=== PATIENT | female | born 1945 | race Caucasian/White ===

== ENCOUNTER 2018-08-31 10:23 | Emergency (ER) | payer MEDICARE ==
--- OUTSIDE RECORDS SUMMARY | 2018-08-31 10:29 | XMS REPORT ---
:1945 External Reference #:[id number] Author Organization [facility] Address [address] [place] [address] [place] [address] Phone [phone] Care Team Providers Name Role Phone Bernadette Velasquez MD Primary Care Physician Unavailable Payers Type Date Identification Numbers Payment Provider Subscriber Commercial Effective: Policy Number: [id number] [employer] Deven Figueroa 2016 PayID: [id number] [address] [place] [address] Medigap Part B Effective: 2009 Policy Number: Medicare Deven Figueroa [id number] Expires: 2016 PayID: [id number] [address] [place] [address] Medigap Part B Expires: 2016 Policy Number: [employer] Deven Figueroa [id number] Group Number: [id number] [address] PayID: [id number] [place] [address] Problems Date Description Provider Status Onset: 07/04/2011 Benign essential hypertension Regla Sanchez M.D. Onset: 07/04/2011 Pure hypercholesterolemia Regla Sanchez M.D. Onset: 02/12/2012 Electrocardiogram abnormal Regla Sanchez M.D. Onset: 02/12/2012 Primary cardiomyopathy Regla Sanchez M.D. Onset: 02/12/2012 Mitral valve disorder Regla Sanchez M.D. Onset: 05/26/2013 Tricuspid valve disorder, Regla Sanchez non-rheumatic Bobby Onset: 04/13/2014 Rheumatic disease of tricuspid valve Regla Sanchez M.D. Onset: 10/14/2015 Essential hypertension Regla Sanchez M.D. Onset: 10/14/2015 Cardiomyopathy, unspecified Regla Sanchez M.D. Family History Date Family Member(s) Problem(s) Comments : (age 52 Father due to Cancer nasal Years) : (age 85 Mother due to Kidney polymyalgia, high doses of Years) Failure steroids type 2 DM : (age 65 First Brother due to Cancer esophogeal hx viral Years) cardiomyopthy Social History Type Date Description Comments Marital Status Lives With Occupation Retired ETOH Use Never used alcohol Smoking Patient has never smoked Document: 07/04/11 - .Progress Note F/Up Cardio Recreational Drug Use Never Used Drugs Daily Caffeine Does Not Consume Caffeine Exercise Type/Frequency Exercises regularly walks 4.0mi/day General Hx Text Allergies, Adverse Reactions, Alerts Date Description Reaction Status Severity Comments 12/18/2006 Sulfa active hives Medications Medication Date Status Form Strength Qnty SIG Indications Ordering Provider Fish Oil 02/11/ Active Capsules 1000mg 1 po qd Woody 2011 Flynn Hannah M.D. Metoprolol 03/14/ Active Tablets ER 50mg 90tabs 1 by Woody Succinate ER 2010 24HR mouth S. every day Bobby Hannah Lisinopril 12/31/ Active Tablets 20mg 90tabs 1 by Woody 2006 mouth S. every haydah, Bobby Simvastatin / Active Tablets 10mg 90tabs 1 po qhs Unknown 0000 Aspirin Ec / Active Tablets DR 81mg 90tabs 1 tablet Unknown Lo-Dose 0000 daily. Metformin HCL / Active Tablets ER 500mg 1 by Unknown ER 0000 24HR mouth every day Areds 00/ Active Capsules 1 by Unknown 0000 mouth bid Vitamin B12 12/02/ Hx Tablets ER 1000mcg 1 po qd Woody 2010 - SDanette 05/26/ Suyapa Hannah M.D. B12 06/25/ Hx one po qd Qutaybeh 2008 - S. 12/02/ [facility], 2010 M.D. Iron 25/ Hx Tablets 65mg one po qd Unknown 2008 - 2012 Vit D 04/22/ Hx 1000Iu one qd Qutaybeh 2008 - S. 02/11/ [facility] Fish Oil 04/22/ Hx Capsules 1000mg 1 po qd Qutaybeh 2008 - S. [facility] 2011 M.[facility]. Vitamin 25/ Hx one po qd Qutaybeh 2008 - S. [facility], 2013 M.D. Simvastatin 04/22/ Hx Tablets 20mg 30tabs 1 po qd Qutaybeh 2008 - S. [facility], 2011 M.D. Lipitor 04/18/ Hx Tablets 10mg 1 PO QHS Qutaybeh 2006 - S. [facility], 2008 M.D. Metoprolol 03/12/ Hx Tablets Qutaybeh Tartrate 2006 - S. 03/12/ [facility], 2006 M.D. Metoprolol 15/ Hx Tablets ER 25mg 180tab 2 tablets Qutaybeh Succinate ER 2006 - 24HR s po qd S. [facility], 2010 M.D. Lipitor 05/ Hx Tablets 20mg 30tabs 1 PO qd Qutaybeh 2006 - [facility]. Lipitor 05/ Hx Tablets 10mg 1 PO qd Qutaybeh 2006 - S. 04/18/ [facility], [facility] M.D. Toprol XL 05/ Hx Tablets ER 50mg 90tabs 1 po qd Qutaybeh 2006 - 24HR S. 03/12/ [facility] M.[facility]. Digoxin 12/31/ Hx Tablets 0.25mg 30tabs 1 po qd Qutaybeh 2006 - S. 10/21/ [facility], 2007 M.D. Lipitor 20/ Hx Tablets 10mg 30tabs 1 PO qd Qutaybeh 2006 - [facility]. 12/[facility]. Toprol XL 02/20/ Hx Tablets 25mg 30tabs 1 PO qd Qutaybeh 2006 - S. 12/31/ [facility], 2006 M.DDanette Lisinopril 12/18/ Hx Tablets 10mg 30tabs 1 PO qd Qutaybeh 2006 - S. 12/31/ [facility], 2006 M.DDanette Digoxin 12/18/ Hx Tablets 250McG 30tabs 1 po qd Qutaybhoma 2006 - . 12/31/ [facility], 2006 M.DDanette Glucophage / Hx Tablets 500XR 360tab 1 PO bid Unknown 0000 - s 2008 Iron 00/ Hx Tablets 25mg Twice A Unknown 0000 - Day 2008 B12 / Hx Injections weekly Unknown 0000 - 2008 Metformin HCL / Hx Tablets ER 500mg 30tabs 1 po qd Unknown ER 0000 - 24HR 2012 Enablex 00/ Hx Tablets ER 15mg qd Unknown 0000 - 24HR 2011 Vagifem / Hx Tablets 10mcg 24tabs pv twice Unknown 0000 - a week (with 2015 applicato r) Cinnamon / Hx Tablets 500mg 2 tabs Unknown 0000 - daily 2014 Preservision / Hx Capsules Areds 2 60caps take one Unknown Areds 2 0000 - cap in the 2015 moring and one cap in the evening Vital Signs Date Vital Result Comment 08/07/2018 Height 68.5 inches 5'8.50" Weight 209.00 lb with shoes Heart Rate 78 /min BP Systolic 134 mmHg BP Diastolic 70 mmHg BMI (Body Mass Index) 31.3 kg/m2 Ejection Fraction 50-55% echo. 07/06/2016 10/15/2017 Height 68.5 inches 5'8.50" Weight 211.00 lb Heart Rate 68 /min BP Systolic Sitting 150 mmHg LA, reg cuff BP Diastolic Sitting 78 mmHg LA, reg cuff BMI (Body Mass Index) 31.6 kg/m2 Ejection Fraction 50%-55% echo 07/06/16 01/29/2017 Height 68.5 inches 5'8.50" Weight 208.75 lb w/o shoes Heart Rate 70 /min BP Systolic Sitting 140 mmHg LA reg cuff BP Diastolic Sitting 68 mmHg LA reg cuff BMI (Body Mass Index) 31.3 kg/m2 Ejection Fraction 50% - 55% echo 07/06/16 06/26/2016 Height 68.5 inches 5'8.50" Weight 207.00 lb w/o shoes Heart Rate 70 /min BP Systolic Sitting 152 mmHg LA reg cuff BP Diastolic Sitting 82 mmHg LA reg cuff BMI (Body Mass Index) 31.0 kg/m2 Ejection Fraction 50-55% Echo 03/03/15 04/04/2016 Height 68.5 inches 5'8.50" Weight 200.00 lb Pain Level 0 BMI (Body Mass Index) 30.0 kg/m2 03/01/2016 Height 68.5 inches 5'8.50" Weight 200.00 lb Pain Level 1 BMI (Body Mass Index) 30.0 kg/m2 02/08/2016 Height 68.5 inches 5'8.50" Weight 200.00 lb Pain Level 0 BMI (Body Mass Index) 30.0 kg/m2 01/28/2016 Height 68.5 inches 5'8.50" Weight 200.00 lb Heart Rate 72 /min BP Systolic 169 mmHg BP Diastolic 81 mmHg BMI (Body Mass Index) 30.0 kg/m2 10/14/2015 Height 64 inches 5'4" Weight 208.00 lb Heart Rate 64 /min BP Systolic 148 mmHg LA, reg50 BP Diastolic 80 mmHg LA, reg50 BMI (Body Mass Index) 35.7 kg/m2 Ejection Fraction 50%-55% 03/03/15 03/01/2015 Height 64 inches 5'4" Weight 210.00 lb w/shoes Heart Rate 74 /min BP Systolic Sitting 130 mmHg LA reg cuff BP Diastolic Sitting 88 mmHg LA reg cuff Respiratory Rate 12 /min BMI (Body Mass Index) 36.0 kg/m2 Ejection Fraction 45-50 echo 08/19/14 08/28/2014 Height 64 inches 5'4" Weight 207.25 lb Heart Rate 74 /min BP Systolic Sitting 136 mmHg LA reg cuff BP Diastolic Sitting 70 mmHg LA reg cuff Respiratory Rate 22 /min BMI (Body Mass Index) 35.6 kg/m2 04/13/2014 Height 64 inches 5'4" Weight 207.00 lb Heart Rate 72 /min BP Systolic Sitting 148 mmHg BP Diastolic Sitting 76 mmHg Respiratory Rate 14 /min BMI (Body Mass Index) 35.5 kg/m2 02/10/2014 Height 64 inches 5'4" Weight 207.50 lb Heart Rate 76 /min BP Systolic Sitting 138 mmHg BP Diastolic Sitting 74 mmHg BP Systolic Recheck 141 mmHg patient cuff BP Diastolic Recheck 84 mmHg patient cuff Respiratory Rate 16 /min BMI (Body Mass Index) 35.6 kg/m2 01/26/2014 Height 64 inches 5'4" Weight 199.00 lb Heart Rate 70 /min BP Systolic Sitting 142 mmHg left arm, reg cuff BP Diastolic Sitting 78 mmHg left arm, reg cuff BP Systolic Standing 138 mmHg left arm, reg cuff BP Diastolic Standing 78 mmHg left arm, reg cuff Respiratory Rate 20 /min BMI (Body Mass Index) 34.2 kg/m2 05/26/2013 Height 64 inches 5'4" Weight 206.00 lb Heart Rate 77 /min BP Systolic Sitting 112 mmHg BP Diastolic Sitting 62 mmHg Respiratory Rate 16 /min BMI (Body Mass Index) 35.4 kg/m2 09/24/2012 Height 64 inches 5'4" Weight 204.00 lb Heart Rate 88 /min BP Systolic Sitting 132 mmHg BP Diastolic Sitting 80 mmHg Respiratory Rate 16 /min BMI (Body Mass Index) 35.0 kg/m2 02/12/2012 Height 64 inches 5'4" Weight 204.00 lb Heart Rate 73 /min BP Systolic 110 mmHg BP Diastolic 64 mmHg Respiratory Rate 16 /min BMI (Body Mass Index) 35.0 kg/m2 07/04/2011 Height 64 inches 5'4" Weight 204.00 lb Heart Rate 74 /min BP Systolic Sitting 128 mmHg BP Diastolic Sitting 82 mmHg BMI (Body Mass Index) 35.0 kg/m2 12/02/2010 Weight 203.00 lb Heart Rate 68 /min BP Systolic Sitting 130 mmHg BP Diastolic Sitting 70 mmHg 02/15/2010 Height 68.5 inches 5'8.50" Weight 199.00 lb Heart Rate 73 /min BP Systolic Sitting 120 mmHg BP Diastolic Sitting 58 mmHg BMI (Body Mass Index) 29.8 kg/m2 11/23/2009 Height 68.5 inches 5'8.50" Weight 197.00 lb Heart Rate 82 /min BP Systolic Sitting 120 mmHg BP Diastolic Sitting 70 mmHg BMI (Body Mass Index) 29.5 kg/m2 04/22/2009 Height 68.5 inches 5'8.50" Weight 187.00 lb Heart Rate 83 /min BP Systolic Sitting 114 mmHg home unit 108/72 BP Diastolic Sitting 74 mmHg home unit 108/72 BMI (Body Mass Index) 28.0 kg/m2 10/21/2008 Height 68.5 inches 5'8.50" Weight 178.00 lb Heart Rate 90 /min BP Systolic Sitting 124 mmHg BP Diastolic Sitting 70 mmHg BMI (Body Mass Index) 26.7 kg/m2 04/23/2008 Height 68.5 inches 5'8.50" Weight 189.00 lb Heart Rate 74 /min BP Systolic Sitting 112 mmHg L BP Diastolic Sitting 60 mmHg L BMI (Body Mass Index) 28.3 kg/m2 10/31/2007 Height 68.5 inches 5'8.50" Weight 191.00 lb Heart Rate 73 /min BP Systolic Sitting 130 mmHg BP Diastolic Sitting 70 mmHg BMI (Body Mass Index) 28.6 kg/m2 04/18/2007 Height 68.5 inches 5'8.50" Weight 191.00 lb Heart Rate 84 /min BP Systolic Sitting 124 mmHg BP Diastolic Sitting 70 mmHg BMI (Body Mass Index) 28.6 kg/m2 12/31/2006 Height 68.5 inches 5'8.50" Weight 192.00 lb Heart Rate 80 /min BP Systolic Sitting 154 mmHg BP Diastolic Sitting 78 mmHg BP Systolic Standing 160 mmHg machine BP Diastolic Standing 84 mmHg machine Respiratory Rate 16 /min BMI (Body Mass Index) 28.8 kg/m2 12/18/2006 Height 68.5 inches 5'8.50" Weight 191.00 lb Heart Rate 85 /min BP Systolic Sitting 162 mmHg left arm 170/94 BP Diastolic Sitting 98 mmHg left arm 170/94 BP Systolic Standing 160 mmHg BP Diastolic Standing 90 mmHg BMI (Body Mass Index) 28.6 kg/m2 Results Test Date Test Result H/L Range Note Comp Metabolic Panel 03/15/2018 Sodium 140 mmol/L 139-145 Potassium 4.4 mmol/L 3.5-5.0 Chloride 106 mmol/L 101-111 Co2 Carbon Dioxide 28 mmol/L 22-32 Anion Gap 6 mmol/L 2-11 Glucose 138 mg/dL High 70-100 Blood Urea Nitrogen 19 mg/dL 6-24 Creatinine 0.59 mg/dL 0.51-0.95 BUN/Creatinine Ratio 32.2 High 8-20 Calcium 9.2 mg/dL 8.6-10.3 Total Protein 6.4 g/dL 6.4-8.9 Albumin 4.2 g/dL 3.2-5.2 Globulin 2.2 g/dL 2-4 Albumin/Globulin Ratio 1.9 1-3 Total Bilirubin 0.70 mg/dL 0.2-1.0 Alkaline Phosphatase 91 U/L 34-104 Alt 13 U/L 7-52 Ast 19 U/L 13-39 Egfr Non- 99.6 >60 Egfr 128.1 >60 1 Lipid Profile (Trig/Chol/HDL) 03/15/2018 Triglycerides 244 mg/dL 2 Cholesterol 174 mg/dL 3 HDL Cholesterol 46.7 mg/dL 4 LDL Cholesterol 79 mg/dL 5 Urine Microalbumin Random 03/15/2018 Ur Microalbumin (mg/L) < 15.0 mg/L Urine Creatinine 98.30 mg/dL Urine Microalbumin/Creatinine TNP ug/mg <31 6 Laboratory test finding 03/15/2018 Hemoglobin A1c (Glyco 6.8 % High 4.0- 5.6 7 HGB) Comp Metabolic Panel 02/13/2017 Sodium 137 mmol/L 133-145 Potassium 4.4 mmol/L 3.5-5.0 Chloride 104 mmol/L 101-111 Co2 Carbon Dioxide 27 mmol/L 22-32 Anion Gap 6 mmol/L 2-11 Glucose 137 mg/dL High 70-100 Blood Urea Nitrogen 18 mg/dL 6-24 Creatinine 0.60 mg/dL 0.51-0.95 BUN/Creatinine Ratio 30.0 High 8-20 Calcium 9.0 mg/dL 8.6-10.3 Total Protein 6.5 g/dL 6.4-8.9 Albumin 4.1 g/dL 3.2-5.2 Globulin 2.4 g/dL 2-4 Albumin/Globulin Ratio 1.7 1-3 Total Bilirubin 0.60 mg/dL 0.2-1.0 Alkaline Phosphatase 76 U/L 34-104 Alt 11 U/L 7-52 Ast 15 U/L 13-39 Egfr Non- 98.3 >60 Egfr 126.4 >60 8 Lipid Profile (Trig/Chol/HDL) 02/13/2017 Triglycerides 257 mg/dL 9 Cholesterol 169 mg/dL 10 HDL Cholesterol 38.8 mg/dL 11 LDL Cholesterol 79 mg/dL 12 Urine Microalbumin Random 02/13/2017 Urine Creatinine 66.03 mg/dL Ur Microalbumin (mg/L) < 15.0 mg/L Urine Microalbumin/Creatinine TNP ug/mg <31 13 Laboratory test 02/13/2017 Hemoglobin A1c 6.8 % High Less than 6.0 14 finding (Glyco HGB) Comp Metabolic Panel 05/08/2015 Sodium 138 mmol/L 133-145 15 Potassium 4.3 mmol/L 3.5-5.0 15 Chloride 106 mmol/L 101-111 15 Co2 Carbon Dioxide 26 mmol/L 22-32 15 Anion Gap 6 mmol/L 2-11 15 Glucose 137 mg/dL High 70-100 15 Blood Urea Nitrogen 17 mg/dL 6-24 15 Creatinine 0.64 mg/dL 0.51-0.95 15 BUN/Creatinine Ratio 26.6 High 8-20 15 Calcium 9.1 mg/dL 8.6-10.3 15 Total Protein 6.8 g/dL 6.4-8.9 15 Albumin 4.5 g/dL 3.2-5.2 15 Globulin 2.3 g/dL 2-4 15 Albumin/Globulin Ratio 2.0 1-3 15 Total Bilirubin 0.60 mg/dL 0.2-1.0 15 Alkaline Phosphatase 80 U/L 34-104 15 Alt 14 U/L 7-52 15 Ast 19 U/L 13-39 15 Egfr Non- 91.5 >60 15 Egfr 117.6 >60 15, 16 Laboratory test 05/08/2015 Hemoglobin A1c 6.5 % High Less than 15, 17 finding (Glyco HGB) 6.0 CBC Auto Diff 01/25/2015 White Blood Count 5.2 10^3/uL 4.8-10.8 Red Blood Count 4.16 10^6/uL 4.0-5.4 Hemoglobin 12.0 g/dL 12.0-16.0 Hematocrit 36 % 35-47 Mean Corpuscular Volume 87 fL 80-97 Mean Corpuscular Hemoglobin 29 pg 27-31 Mean Corpuscular HGB Conc 33 g/dL 31-36 Red Cell Distribution Width 13 % 10.5-15 Platelet Count 156 10^3/uL 150-450 Mean Platelet Volume 8 um3 7.4-10.4 Abs Neutrophils 3.2 10^3/uL 1.5-7.7 Abs Lymphocytes 1.5 10^3/uL 1.0-4.8 Abs Monocytes 0.4 10^3/uL 0-0.8 Abs Eosinophils 0.1 10^3/uL 0-0.6 Abs Basophils 0 10^3/uL 0-0.2 Abs Nucleated RBC 0 10^3/uL Granulocyte % 60.4 % 38-83 Lymphocyte % 28.7 % 25-47 Monocyte % 7.7 % 1-9 Eosinophil % 2.5 % 0-6 Basophil % 0.7 % 0-2 Nucleated Red Blood Cells % 0.1 Comp Metabolic Panel 01/25/2015 Sodium 140 mmol/L 133-145 Potassium 4.3 mmol/L 3.5-5.0 Chloride 107 mmol/L 101-111 Co2 Carbon Dioxide 31 mmol/L 22-32 Anion Gap 2 mmol/L 2-11 Glucose 138 mg/dL High 70-100 Blood Urea Nitrogen 17 mg/dL 6-24 Creatinine 0.64 mg/dL 0.51-0.95 BUN/Creatinine Ratio 26.6 High 8-20 Calcium 9.3 mg/dL 8.6-10.3 Total Protein 6.4 g/dL 6.4-8.9 Albumin 4.3 g/dL 3.2-5.2 Globulin 2.1 g/dL 2-4 Albumin/Globulin Ratio 2.0 1-3 Total Bilirubin 0.50 mg/dL 0.2-1.0 Alkaline Phosphatase 86 U/L 34-104 Alt 16 U/L 7-52 Ast 18 U/L 13-39 Egfr Non- 91.7 >60 Egfr 118.0 >60 18 Urine Microalbumin Random 01/25/2015 Ur Microalbumin (mg/L) 13.0 mg/L Urine Creatinine 134.01 mg/dL Urine Microalbumin/Creatinine 9.7 Less Than 31 Laboratory test 01/25/2015 Hemoglobin A1c 7.1 % High Less than 19 finding 6.0 Order 07/14/2014 Stress Test, Exercise <pending> Echocardiogram Urine Microalbumin 05/20/2013 Ur Microalbumin (mg/L) 26.0 mg/L 20 Random Urine Creatinine 202.8 mg/dL Urine Microalbumin/Creatinine 12.8 Less Than 31 Comp Metabolic Panel 05/20/2013 Sodium 138 mmol/L 133-145 Potassium 4.2 mmol/L 3.5-5.0 Chloride 104 mmol/L 101-111 Co2 Carbon Dioxide 28.0 mmol/L 22-32 Anion Gap 6.0 mmol/L 2-11 Glucose 129 mg/dL High 70-100 Blood Urea Nitrogen 16 mg/dL 6-24 Creatinine 0.70 mg/dL 0.50-1.40 BUN/Creatinine Ratio 22.9 High 8-20 Calcium 9.1 mg/dL 8.1-9.9 Total Protein 6.3 g/dL 6.2-8.1 Albumin 4.0 g/dL 3.2-5.2 Globulin 2.3 g/dL 2-4 Albumin/Globulin Ratio 1.7 1-3 Total Bilirubin 0.7 mg/dL 0.4-1.5 Alkaline Phosphatase 75 U/L 30-110 Alt 16 U/L 14-54 Ast 20 U/L 12-42 Egfr Non- 83.0 >60 Egfr 106.7 >60 21 Lipid Profile (Trig/Chol/HDL) 05/20/2013 Triglycerides 268 mg/dL High 40- 200 Cholesterol 165 mg/dL Less than 200 HDL Cholesterol 44 mg/dL 40-60 22 Cholesterol/HDL Ratio 3.8 Average 1-4.44 LDL Cholesterol 67.4 Less Than 100 23 Laboratory test 05/20/2013 Hemoglobin A1c 6.4 % High Less than 6.0 24 finding Urine Microalbumin 03/12/2013 Ur Microalbumin (Mg/L) 9.0 mg/L 25 Random Urine Creatinine 130.4 mg/dL Urine Microalbumin/Creatinine 6.9 ug/mg Less Than 31 Comp Metabolic Panel 03/12/2013 Sodium 142 mmol/L 133-145 Potassium 4.3 mmol/L 3.5-5.0 Chloride 107 mmol/L 101-111 Co2 Carbon Dioxide 29.0 mmol/L 22-32 Anion Gap 6.0 mmol/L 2-11 Glucose 118 mg/dL High 70-100 Blood Urea Nitrogen 18 mg/dL 6-24 Creatinine 0.60 mg/dL 0.50-1.40 BUN/Creatinine Ratio 30.0 High 8-20 Calcium 9.3 mg/dL 8.1-9.9 Total Protein 7.0 g/dL 6.2-8.1 Albumin 3.8 g/dL 3.2-5.2 Globulin 3.2 g/dL 2-4 Albumin/Globulin Ratio 1.2 1-3 Total Bilirubin 0.8 mg/dL 0.4-1.5 Alkaline Phosphatase 77 U/L 30-110 Alt 15 U/L 14-54 Ast 22 U/L 12-42 Egfr Non- 99.1 >60 Egfr 127.5 >60 26 Lipid Profile (Trig/Chol/HDL) 03/12/2013 Triglycerides 193 mg/dL 40-200 Cholesterol 169 mg/dL Less than 200 HDL Cholesterol 44 mg/dL 40-60 27 Cholesterol/HDL Ratio 3.8 Average 1-4.44 LDL Cholesterol 86.4 mg/dL Less Than 100 28 Laboratory test finding 03/12/2013 Hemoglobin A1c 6.4 % High Less than 6.0 29 Retic Count 11/05/2012 Retic Count 2.0 % High 0.5-1.5 Corrected Retic Count 1.6 % High 0.5-1.5 Maturation Factor Retic 1.5 Retic Index 1.10 Mean Retic Volume 98.2 Immature Retic Fraction 0.39 RBC Retic Count 4.15 10^6/uL Low 4.6-6.2 Hematocrit for Retic CNT 36 % 35-47 Lipid Profile (Trig/Chol/HDL) 11/05/2012 Triglycerides 229 mg/dL High 40- 200 Cholesterol 193 mg/dL Less than 200 HDL Cholesterol 48 mg/dL 40-60 30 Cholesterol/HDL Ratio 4.0 Average 1-4.44 LDL Cholesterol 99.2 mg/dL Less Than 100 31 Laboratory test finding 11/05/2012 Hemoglobin A1c 6.8 % High Less than 6.0 32 Ferritin 81 ng/mL 11-307 33 Vitamin B12 574 pg/mL 180-914 34 Folate > 25.0 ng/mL High 2-16 35 CBC Auto Diff 11/05/2012 White Blood Count 6.0 10^3/uL 4.8-10.8 Red Blood Count 4.15 10^6/uL 4.0-5.4 Hemoglobin 12.1 g/dL 12.0-16.0 Hematocrit 36 % 35-47 Mean Corpuscular Volume 87 fL 80-97 Mean Corpuscular Hemoglobin 29 pg 27-31 Mean Corpuscular HGB Conc 34 g/dL 31-36 Red Cell Distribution Width 14 % 10.5-15 Platelet Count 151 10^3/uL 150-450 Mean Platelet Volume 8 um3 7.4-10.4 Abs Neutrophils 3.6 10^3/uL 1.5-7.7 Abs Lymphocytes 1.8 10^3/uL 1.0-4.8 Abs Monocytes 0.4 10^3/uL 0-0.8 Abs Eosinophils 0.1 10^3/uL 0-0.6 Abs Basophils 0 10^3/uL 0-0.2 Abs Nucleated RBC 0 10^3/uL Granulocyte % 59.9 % 38-83 Lymphocyte % 30.6 % 25-47 Monocyte % 6.9 % 1-9 Eosinophil % 2.0 % 0-6 Basophil % 0.6 % 0-2 Nucleated Red Blood Cells % 0 Laboratory test finding 11/23/2009 Magnesium 2.4 mg/dL 1.7-2.6 36 Calcium 9.7 mg/dL 8.1-9.9 36, 37 Phosphorus 3.5 mg/dL 2.4-4.7 36 Basic Metabolic Panel 11/23/2009 Sodium 138 mmol/L 135-145 36 Potassium 4.2 mmol/L 3.5-5.0 36 Chloride 103 mmol/L 101-111 36 Co2 (Carbon Dioxide) 31.0 mmol/L 22-32 36 Anion Gap 4.0 mmol/L 2-11 36, 38 Glucose 108 mg/dL High 70-100 36, 39 BUN 19 mg/dL 6-24 36 Creatinine 0.60 mg/dL 0.50-1.40 36 One Over Creatinine 1.60 36 BUN/Creatinine Ratio 31.7 High 8-20 36 eGFR Non- 106.6 > 60 36 eGFR 129.0 > 60 36, 40 Basic Metabolic Panel 10/18/2007 One Over Creatinine 1.42 Anion Gap 4.0 mmol/L 2-11 41 BUN 22 mg/dL 6-24 Calcium 9.3 mg/dL 8.7-10.2 Chloride 105 mmol/L 101-111 Co2 (Carbon Dioxide) 31.0 mmol/L 22-32 Glucose 122 mg/dL High 70-105 Potassium 4.3 mmol/L 3.5-5.0 Sodium 140 mmol/L 135-145 BUN/Creatinine Ratio 31.4 High 8-20 Creatinine 0.7 mg/dL 0.5-1.4 Laboratory test finding 10/18/2007 Digoxin < 0.2 NG/ML Low 0.5-1.5 42 Laboratory test finding 04/05/2007 Digoxin 0.2 NG/ML Low 0.5-1.5 43 Basic Metabolic Panel 04/05/2007 One Over Creatinine 1.25 Anion Gap 5.0 mmol/L 2-11 44 BUN 20 mg/dL 6-24 Calcium 9.1 mg/dL 8.7-10.2 Chloride 105 mmol/L 101-111 Co2 (Carbon Dioxide) 29.0 mmol/L 22-32 Glucose 99 mg/dL 70-105 Potassium 4.4 mmol/L 3.5-5.0 Sodium 139 mmol/L 135-145 BUN/Creatinine Ratio 25.0 High 8-20 Creatinine 0.8 mg/dL 0.5-1.4 CBC With Manual Diff 12/18/2006 RBC Morphology NORMAL White Blood Count 6.8 CUMM 4.8-10.8 Absolute Neutrophil Count 5.0 Band Neutrophil 3 % 0-8 Hematocrit 37 % 35-47 Hemoglobin 12.9 g/dL 12.0-16.0 Lymphocyte 21 % 5-47 Mean Corpuscular HGB Cone 35 g/dL 32-36 Mean Corpuscular Hemoglob 29 pg 27-31 Mean Corpuscular Volume 83 um3 79-97 Monocyte 5 % 0-13 Mean Platelet Volume 7.5 um3 7.4-10.4 Platelet Count 180 CUMM 150-450 Polysegmented Neutrophil 71 % 38-83 Red Cell Count 4.50 CUMM 4.2-5.4 Redcell Distribution WDTH 14 % 10.5-15 Cath Panel 12/18/2006 PTT (Aptt) 22.9 20.4-29.5 45 Protime 12/18/2006 Inr 1.19 46 Protime 13.1 10.9-13.1 1 Because ethnic data is not always readily available, this report includes an eGFR for both -Americans and non- Americans. The National Kidney Disease Education Program (NKDEP) does not endorse the use of the MDRD equation for patients that are not between the ages of 18 and 70, are , have extremes of body size, muscle mass, or nutritional status, or are non- or non-. According to the National Kidney Foundation, irrespective of diagnosis, the stage of the disease is based on the level of kidney function: Stage Description GFR(mL/min/1.73 m(2)) 1 Kidney damage with normal or decreased GFR 90 2 Kidney damage with mild decrease in GFR 60-89 3 Moderate decrease in GFR 30-59 4 Severe decrease in GFR 15-29 5 Kidney failure <15 (or dialysis) 2 Desirable: <150 Borderline High: 150-199 High: 200-499 Very High: >500 3 Desirable: <200 Borderline High: 200-239 High: >239 4 Low: <40 Desirable: 40-60 High: >60 5 Desirable: <100 Near Optimal: 100-129 Borderline High: 130-159 High: 160-189 Very High: >189 6 Unable to calculate due to low microalbumin 7 Therapeutic target for the treatment of diabetes mellitus patients is <7% HBA1C, and in selective patients <6.0%. Please refer to [place] [employer] diabetic care guidelines for further information. 8 Because ethnic data is not always readily available, this report includes an eGFR for both -Americans and non- Americans. The National Kidney Disease Education Program (NKDEP) does not endorse the use of the MDRD equation for patients that are not between the ages of 18 and 70, are , have extremes of body size, muscle mass, or nutritional status, or are non- or non-. According to the National Kidney Foundation, irrespective of diagnosis, the stage of the disease is based on the level of kidney function: Stage Description GFR(mL/min/1.73 m(2)) 1 Kidney damage with normal or decreased GFR 90 2 Kidney damage with mild decrease in GFR 60-89 3 Moderate decrease in GFR 30-59 4 Severe decrease in GFR 15-29 5 Kidney failure <15 (or dialysis) 9 Desirable <150 Borderline high 150-199 High 200-499 Very High >500 10 Desirable <200 Borderline high 200-239 High >239 11 Low <40 Desirable: 40-60 High: >60 12 Desirable: <100 mg/dL Near Optimal: 100-129 mg/dL Borderline High: 130-159 mg/dL High: 160-189 mg/dL Very High: >189 mg/dL 13 Unable to calculate due to low microalbumin 14 Therapeutic target for the treatment of diabetes Mellitus patients is <7% HBA1C, and in selective patients <6.0%.Please refer to [place] [employer] Diabetic care guidelines for further information. 15 PT IS FASTING 16 Because ethnic data is not always readily available, this report includes an eGFR for both -Americans and non- Americans. The National Kidney Disease Education Program (NKDEP) does not endorse the use of the MDRD equation for patients that are not between the ages of 18 and 70, are , have extremes of body size, muscle mass, or nutritional status, or are non- or non-. According to the National Kidney Foundation, irrespective of diagnosis, the stage of the disease is based on the level of kidney function: Stage Description GFR(mL/min/1.73 m(2)) 1 Kidney damage with normal or decreased GFR 90 2 Kidney damage with mild decrease in GFR 60-89 3 Moderate decrease in GFR 30-59 4 Severe decrease in GFR 15-29 5 Kidney failure <15 (or dialysis) 17 Therapeutic target for the treatment of diabetes Mellitus patients is <7% HBA1C, and in selective patients <6.0%.Please refer to [place] [employer] Diabetic care guidelines for further information. 18 Because ethnic data is not always readily available, this report includes an eGFR for both -Americans and non- Americans. The National Kidney Disease Education Program (NKDEP) does not endorse the use of the MDRD equation for patients that are not between the ages of 18 and 70, are , have extremes of body size, muscle mass, or nutritional status, or are non- or non-. According to the National Kidney Foundation, irrespective of diagnosis, the stage of the disease is based on the level of kidney function: Stage Description GFR(mL/min/1.73 m(2)) 1 Kidney damage with normal or decreased GFR 90 2 Kidney damage with mild decrease in GFR 60-89 3 Moderate decrease in GFR 30-59 4 Severe decrease in GFR 15-29 5 Kidney failure <15 (or dialysis) 19 Therapeutic target for the treatment of diabetes Mellitus patients is <7% HBA1C, and in selective patients <6.0%.Please refer to [place] [employer] Diabetic care guidelines for further information. 20 Microalbuminuria in a random sample is defined as: Microalbumin/Creatinine ratio of 30-299 ug/mg. 21 Because ethnic data is not always readily available, this report includes an eGFR for both -Americans and non- Americans. The National Kidney Disease Education Program (NKDEP) does not endorse the use of the MDRD equation for patients that are not between the ages of 18 and 70, are , have extremes of body size, muscle mass, or nutritional status, or are non- or non-. According to the National Kidney Foundation, irrespective of diagnosis, the stage of the disease is based on the level of kidney function: Stage Description GFR(mL/min/1.73 m(2)) 1 Kidney damage with normal or decreased GFR 90 2 Kidney damage with mild decrease in GFR 60-89 3 Moderate decrease in GFR 30-59 4 Severe decrease in GFR 15-29 5 Kidney failure <15 (or dialysis) 22 HDL Interpretation: Undesirable: High Risk: Less than 40 mg/dL Desirable: Low Risk: Greater than 60 mg/dL 23 LDL Interpretation: Low Risk Optimal Level: LDL Less than 100 mg/dL Near or Above Optimal: LDL 100-129 mg/dL Borderline High Risk: LDL 130-159 mg/dL High Risk: LDL 160-189 mg/dL Very High Risk: LDL Greater than 189 mg/dL 24 Therapeutic target for the treatment of diabetes Mellitus patients is <7% HBA1C, and in selective patients <6.0%.Please refer to [place] [employer] Diabetic care guidelines for further information. 25 Microalbuminuria in a random sample is defined as: Microalbumin/Creatinine ratio of 30-299 ug/mg. 26 Because ethnic data is not always readily available, this report includes an eGFR for both -Americans and non- Americans. The National Kidney Disease Education Program (NKDEP) does not endorse the use of the MDRD equation for patients that are not between the ages of 18 and 70, are , have extremes of body size, muscle mass, or nutritional status, or are non- or non-. According to the National Kidney Foundation, irrespective of diagnosis, the stage of the disease is based on the level of kidney function: Stage Description GFR(mL/min/1.73 m(2)) 1 Kidney damage with normal or decreased GFR 90 2 Kidney damage with mild decrease in GFR 60-89 3 Moderate decrease in GFR 30-59 4 Severe decrease in GFR 15-29 5 Kidney failure <15 (or dialysis) 27 HDL Interpretation: Undesirable: High Risk: Less than 40 MG/DL Desirable: Low Risk: Greater than 60 MG/DL 28 LDL Interpretation: Low Risk Optimal Level: LDL Less than 100 MG/DL Near or Above Optimal: LDL 100-129 MG/DL Borderline High Risk: LDL 130-159 MG/DL High Risk: LDL 160-189 MG/DL Very High Risk: LDL Greater than 189 MG/DL 29 Therapeutic target for the treatment of diabetes Mellitus patients is <7% HBA1C, and in selective patients <6.0%.Please refer to [place] [employer] Diabetic care guidelines for further information. 30 HDL Interpretation: Undesirable: High Risk: Less than 40 MG/DL Desirable: Low Risk: Greater than 60 MG/DL 31 LDL Interpretation: Low Risk Optimal Level: LDL Less than 100 MG/DL Near or Above Optimal: LDL 100-129 MG/DL Borderline High Risk: LDL 130-159 MG/DL High Risk: LDL 160-189 MG/DL Very High Risk: LDL Greater than 189 MG/DL 32 Therapeutic target for the treatment of diabetes Mellitus patients is <7% HBA1C, and in selective patients <6.0%.Please refer to [place] [employer] Diabetic care guidelines for further information. 33 Fasting 34 Fasting 35 Fasting 36 PATIENT MAY HAVE RESULTS PER DOCTOR'S AUTHORIZATION. Questions regarding this report should be directed to your doctor. 37 Please note change in reference range effective 08 . 38 Anion gap measurement may be of limited value in the presence of any alkalosis, especially in a combined acid base disorder. . 39 Note change in reference range as of 06/18/08. The change was based on recommendations from the [place] [employer]. 40 Because ethnic data is not always readily available, this report includes an eGFR for both -Americans and non- Americans. The National Kidney Disease Education Program (NKDEP) does not endorse the use of the MDRD equation for patients that are not between the ages of 18 and 70, are , have extremes of body size, muscle mass, or nutritional status, or are non- or non-. According to the National Kidney Foundation, irrespective of diagnosis, the stage of the disease is based on the level of kidney function: Stage Description GFR(mL/min/1.73 m(2)) 1 Kidney damage with normal or decreased GFR 90 2 Kidney damage with mild decrease in GFR 60-89 3 Moderate decrease in GFR 30-59 4 Severe decrease in GFR 15-29 5 Kidney failure <15 (or dialysis) 41 Anion gap measurement may be of limited value in the presence of any alkalosis, especially in a combined acid base disorder. . 42 *LEVELS AT THE LOWER END OF THE RANGE MAY BE NEEDED FOR SYMPTOMATIC HEART FAILURE AND LEVELS AT THE HIGHER END OF THE RANGE FOR RATE CONTROL.* 43 *LEVELS AT THE LOWER END OF THE RANGE MAY BE NEEDED FOR SYMPTOMATIC HEART FAILURE AND LEVELS AT THE HIGHER END OF THE RANGE FOR RATE CONTROL.* 44 Anion gap measurement may be of limited value in the presence of any alkalosis, especially in a combined acid base disorder. . 45 PLEASE NOTE NEW REFERENCE RANGE EFFECTIVE 05 46 TAMAR VALUE=2.00 ( OF 08/14/06) Recommended INR for Patients on Oral Anticoagulants Prophylaxis 2.0 - 3.0 Treatment of thrombosis 2.0 - 3.0 Prevention of embolism 2.0 - 3.0 Prevention of embolism from prosthetic heart valves 2.5 - 3.5 Procedures Date CPT Code Description Status 08/07/2018 02946 EKG Tracing & Interpretation Completed 10/15/2017 81341 EKG Tracing & Interpretation Completed 01/29/2017 16417 EKG Tracing & Interpretation Completed 07/06/2016 50442 ECHO Transthoracic, Real-Time 2D With Doppler And Color Completed Flow 06/26/2016 71876 EKG Tracing & Interpretation Completed 10/14/2015 94593 EKG Tracing & Interpretation Completed 03/03/2015 26649 ECHO Transthoracic, Real-Time 2D With Doppler And Color Completed Flow 03/01/2015 72741 EKG Tracing & Interpretation Completed 08/28/2014 11613 EKG Tracing & Interpretation Completed 08/19/2014 55960 ECHO Transthoracic, Real-Time 2D With Doppler And Color Completed Flow 07/14/2014 57213 ECHO Stress Test Incl Perf Contiuous ekg Monitoring Completed W/Phys Superv 07/14/2014 88332 ECHO Stress Test Incl Perf Contiuous ekg Monitoring Completed W/Phys Superv 03/11/2014 34296 Color Flow Doppler/Interp & Reprt Completed 03/11/2014 71404 Pulse Wave/Continuous-Interp.RPT Completed 03/11/2014 50992 Echocardiography, Transesophageal, Real Time W/Image 2D Completed W/W/O M-M 01/26/2014 79287 EKG Tracing & Interpretation Completed 01/22/2014 62615 ECHO Transthoracic, Real-Time 2D With Doppler And Color Completed Flow 05/26/2013 24020 EKG Tracing & Interpretation Completed 05/13/2013 19689 ECHO Transthoracic, Real-Time 2D With Doppler And Color Completed Flow 09/24/2012 00921 EKG Tracing & Interpretation Completed 09/13/2012 55840 ECHO Transthoracic, Real-Time 2D With Doppler And Color Completed Flow 02/12/2012 71489 EKG Tracing & Interpretation Completed 01/25/2012 76482 ECHO Transthoracic, Real-Time 2D With Doppler And Color Completed Flow 07/04/2011 92419 EKG Tracing & Interpretation Completed 06/23/2011 61119 ECHO Transthoracic, Real-Time 2D With Doppler And Color Completed Flow 12/02/2010 35421 EKG Tracing & Interpretation Completed 11/24/2010 03640 ECHO Transthoracic, Real-Time 2D With Doppler And Color Completed Flow 02/15/2010 25317 EKG Tracing & Interpretation Completed 12/03/2009 82485 Holter Monitor Completed 11/23/2009 23979 EKG Tracing & Interpretation Completed 11/16/2009 55779 ECHO Transthoracic, Real-Time 2D With Doppler And Color Completed Flow 04/22/2009 23011 EKG Tracing & Interpretation Completed 10/21/2008 05232 EKG Tracing & Interpretation Completed 10/21/2008 46766 EKG Tracing & Interpretation Completed 09/15/2008 43491 Color Flow Doppler/Interp & Reprt Completed 09/15/2008 15208 Pulse Wave/Continuous-Interp.RPT Completed 09/15/2008 33735 Pulse Wave/Continuous-Interp.RPT Completed 09/15/2008 90454 Echocardiogram Completed 04/23/2008 12101 EKG Tracing & Interpretation Completed 04/23/2008 87144 EKG Tracing & Interpretation Completed 04/16/2008 81083 Color Doppler Completed 04/16/2008 97600 Color Doppler Completed 04/16/2008 37851 Pulse Doppler & Continuous Wave Completed 04/16/2008 81374 Echocardiogram Completed 04/16/2008 25255 Echocardiogram Completed 10/31/2007 06317 EKG Tracing & Interpretation Completed 10/18/2007 08225 Holter Monitor Completed 10/18/2007 46127 Holter Monitor Completed 10/18/2007 66477 Holter Monitor Completed 10/18/2007 13709 Echocardiogram Completed 10/18/2007 72550 Echocardiogram Completed 10/18/2007 96511 Pulse Doppler & Continuous Wave Completed 10/18/2007 91252 Pulse Doppler & Continuous Wave Completed 10/18/2007 11554 Pulse Doppler & Continuous Wave Completed 10/18/2007 46029 Color Doppler Completed 10/18/2007 81877 Color Doppler Completed 04/05/2007 78138 Holter Monitor Completed 04/05/2007 06412 Echocardiogram Completed 04/05/2007 19551 Echocardiogram Completed 04/05/2007 55152 Pulse Doppler & Continuous Wave Completed 04/05/2007 37875 Color Doppler Completed 04/05/2007 65728 Color Doppler Completed 12/26/2006 32358 Com RT And LT Catheterization Completed 12/26/2006 00638 Inj Proc LFT Vent/LFT Atrl Angio Completed 12/26/2006 05299 Inj Proc LFT Vent/LFT Atrl Angio Completed 12/26/2006 02658 Coronary Angiography Completed 12/26/2006 48213 S/I/R Inj Proc Vent And Or Atrial Completed 12/26/2006 83319 S/I/R Inj Proc Vent And Or Atrial Completed 12/26/2006 43805 Selective Coronary Angioplasty Completed 12/24/2006 74588 Holter Monitor Completed 12/24/2006 82237 Holter Monitor Completed 12/18/2006 04983 EKG Tracing & Interpretation Completed 12/13/2006 29151 Color Doppler Completed 12/13/2006 50049 Color Doppler Completed 12/13/2006 72646 Pulse Doppler & Continuous Wave Completed 12/13/2006 55375 Echocardiogram Completed 12/13/2006 61907 Echocardiogram Completed 12/13/2006 66118 EKG Tracing & Interpretation Completed Encounters Type Date Location Provider CPT E/M Dx Office Visit 08/07/2018 1:40p [facility] Pachecohoma SDanette Hannah, 64381 I34.0 M.D. I10 E66.9 E78.2 I49.3 Office Visit 10/15/2017 3:40p [facility] Woody SDanette Hannah, 66887 I34.0 M.D. I10 E78.4 Office Visit 01/29/2017 2:40p [facility] Bekataybhoma SDanette Hannah, 86872 I34.0 M.D. I10 E78.4 R94.31 I42.9 Office Visit 06/26/2016 1:20p [facility] Bekataybhoma S. Brielle, 20631 I42.9 M.D. I34.0 I10 E78.4 R94.31 Office Visit 04/04/2016 2:30p [facility] Tres Goetz, 32461 S82.402D Of Dagoberto Rosales Office Visit 03/01/2016 1:50p [facility], 24585 S82.402D Of Dagoberto Rosales Office Visit 02/08/2016 3:30p [facility] [place], 81495 S82.402D Of Dagoberto Rosales Office Visit 01/28/2016 10:00a [facility], 97796 S82.402A Of Dagoberto Rosales Office Visit 10/14/2015 2:20p [facility] Qutaybeh S. 52981 I42.9 Bobby Hannah I34.0 I10 R94.31 E78.4 Office Visit 03/01/2015 10:00a [facility] Qutaybeh S. Maghaydah, 13391 425.4 M.D. 424.0 401.1 397.0 794.31 Office Visit 08/28/2014 10:20a [facility] Qutaybeh S. Maghaydah, 34088 425.4 M.D. 424.0 401.1 397.0 794.31 Office Visit 07/14/2014 2:30p [facility] Qutaybeh S. Maghaydah, 31864 425.4 M.D. 424.0 401.1 Office Visit 04/13/2014 3:00p [facility] Qutaybeh S. Maghaydah, 67477 424.0 M.D. 397.0 425.4 401.1 Office Visit 03/11/2014 8:00a [facility] Qutaybeh S. Maghaydah, 70355 424.0 M.D. 397.0 425.4 Office Visit 02/10/2014 10:30a [facility] MANUEL Hernandez 26676 425.4 401.1 Office Visit 01/26/2014 9:00a [facility] Qutaybeh S. Maghaydah, 72112 794.31 M.D. 425.4 424.0 401.1 Office Visit 05/26/2013 10:00a [facility] Qutaybeh S. Maghaydah, 13810 794.31 M.D. 425.4 424.0 272.0 424.2 Office Visit 09/24/2012 9:40a [facility] Qutaybeh S. Maghaydah, 39666 794.31 M.D. 401.1 425.4 424.0 427.69 Office Visit 02/12/2012 9:00a [facility] Qutaybeh S. Maghaydah, 58727 794.31 M.D. 401.1 425.4 424.0 Office Visit 07/04/2011 3:20p [facility] Qutaybeh S. Maghaydah, 98666 401.1 M.D. 272.0 794.31 425.4 427.69 Office Visit 12/02/2010 2:40p [facility] Qutaybeh S. Maghaydah, 50142 424.0 M.D. 401.1 424.2 272.0 427.69 794.31 Office Visit 02/15/2010 3:00p [facility] Qutaybeh S. Maghaydah, 21760 424.0 M.D. 401.1 424.2 272.0 427.69 Office Visit 11/23/2009 9:00a [facility] Qutaybeh S. Maghaydah, 97489 401.1 M.D. 424.0 272.0 424.2 427.69 Office Visit 04/22/2009 9:20a [facility] Qutaybeh S. Maghaydah, 68731 401.1 M.D. 425.4 424.0 272.0 Office Visit 10/21/2008 9:00a [facility] Qutaybeh S. Maghaydah, 28130 428.33 M.D. 401.1 250.00 425.4 424.0 Office Visit 04/23/2008 9:20a [facility] Qutaybeh S. Maghaydah, 64880 425.4 M.D. 401.1 424.0 424.2 272.4 425.9 Office Visit 10/31/2007 3:00p [facility] Qutaybeh S. Maghaydah, 61340 425.4 M.D. 401.1 424.0 424.2 427.69 272.4 427.1 Office Visit 04/18/2007 2:20p [facility] Qutaybeh S. Maghaydah, 13031 425.4 M.D. 401.1 272.4 424.0 Office Visit 12/31/2006 2:40p [facility] Pachecohoma Hannah, 30222 425.4 M.D. 401.0 272.4 Office Visit 12/18/2006 1:40p [facility] Pachecohoma Hannah, 21929 425.9 M.D. 401.0 424.0 416.8 Plan of Care Future Appointment(s):09/09/2018 2:00 pm - [place] [facility] Schedule at [facility]09/10/2018 1:30 pm - Nurse Visit cc at [facility]09/09/2018 3 :00 pm - Nurse Visit cc at [facility]08/07/2018 - Woody Hannah M.D.I34.0 Nonrheumatic mitral (valve) insufficiencyNew Orders: EchocardiogramFollow up:9 months ovI10 Essential (primary) eypqzbmfxgevY47.9 Obesity, iejshylmcvfZ77.2 Mixed hmegvihccdnlfiX81.3 Ventricular premature depolarizationNew Orders:24 hour holter monitor
[2018-08-31 10:33] VITALS: BP 158/82
--- NOTE | 2018-08-31 11:14 | ED ---
Throat Pain/Nasal Congestion - HPI Summary HPI Summary: 73 yo WF with MMP p/w left upper eyelid pain and vesicular rash x 2 days. Rash was preceded by a WILDE and a strange sensation over left eyelid but thought it was part of having had flu vaccination 1 days prior to sx onset. - History of Current Complaint Chief Complaint: UCRash Time Seen by Provider: 08/31/18 10:47 Hx Obtained From: Patient Onset/Duration: Sudden Onset Severity: Moderate Associated Signs And Symptoms: Positive: Negative Cough: None - Allergies/Home Medications Allergies/Adverse Reactions: Allergies Allergy/AdvReac Type Severity Reaction Status Date / Time Sulfa (Sulfonamide Allergy Hives Verified 08/31/18 10:33 Antibiotics) Home Medications: Home Medications Acetaminophen [Tylenol] 2 tab PO ONCE PRN 08/31/18 [History Confirmed 08/31/18] Areds 1 dose PO DAILY 08/31/18 [History Confirmed 08/31/18] Aspirin [Ecotrin] 81 mg PO DAILY 08/31/18 [History Confirmed 08/31/18] Ibuprofen TAB* [Advil TAB*] 400 mg PO ONCE PRN 08/31/18 [History Confirmed 08/31] Lisinopril TAB* [Prinivil TAB 10 MG*] 20 mg PO DAILY 08/31/18 [History Confirmed 08/31/18] Metoprolol Tartrate TAB* [Lopressor TAB*] 50 mg PO DAILY 08/31/18 [History Confirmed 08/31/18] [place]-3 Fatty Acids/Fish Oil [Fish Oil 1,000 mg Capsule] 1 each PO DAILY [History Confirmed 08/31/18] Simvastatin TAB(NF) [Zocor 10 MG (NF)] 10 mg PO DAILY 08/31/18 [History Confirmed 08/31/18] metFORMIN* [Glucophage 500 MG TAB *] 500 mg PO DAILY 08/31/18 [History Confirmed 08/31/18] PMH/Surg Hx/FS Hx/Imm Hx Previously Healthy: Yes Endocrine/Hematology History: Reports: Hx Diabetes Cardiovascular History: Reports: Hx Hypertension Denies: Hx Pacemaker/ICD History: Denies: Hx Renal Disease Musculoskeletal History: Denies: Hx Rheumatoid Arthritis, Hx Osteoporosis Sensory History: Reports: Hx Hearing Aid Psychiatric History: Denies: Hx Panic Disorder - Cancer History Hx Chemotherapy: No Hx Radiation Therapy: No - Surgical History Surgery Procedure, Year, and Place: Heart catherization 12/2006 - NO STENTS. CHOLECYSTECTOMY . Stent insertion ureter 09/05. Colonoscopy 03/12 Infectious Disease History: No Infectious Disease History: Denies: Hx Clostridium Difficile, Traveled Outside the [place] in Last 30 Days - Family History Known Family History: Positive: Unknown - Social History Alcohol Use: None Substance Use Type: Reports: None Smoking Status (MU): Never Smoked Tobacco Have You Smoked in the Last Year: No Review of Systems Constitutional: Negative Eyes: Other Positive: Drainage, Erythema ENT: Negative Cardiovascular: Negative Respiratory: Negative Gastrointestinal: Negative Genitourinary: Negative Musculoskeletal: Negative Skin: Other Positive: Rash - over left eyelid Neurological: Negative All Other Systems Reviewed And Are Negative: Yes Physical Exam - Summary Physical Exam Summary: Vital Signs Reviewed: Yes Appearance: Positive: Well-Appearing Skin: Positive: small erythematous vesicular lesions on left upper eyelid Head/Face: Positive: Normal Head/Face Inspection Eyes: Positive: EOMI, CRISTEL, baseline myopia, no diplopia ENT: Positive: Hearing grossly normal, Pharynx normal, TMs normal Neck: Positive: Supple, No Lymphadenopathy Respiratory/Lung Sounds: Positive: Clear to Auscultation Cardiovascular: Positive: RRR, S1, S2 Abdomen Description: Positive: Nontender, Soft Bowel Sounds: Positive: Present Musculoskeletal: Positive: Normal Neurological: Positive: CN Intact II-III Psychiatric: Positive: Normal Triage Information Reviewed: Yes Vital Signs On Initial Exam: Initial Vitals Temp Pulse Resp BP Pulse Ox 36.4 C 82 16 158/82 99 08/31/18 10:26 08/31/18 10:26 08/31/18 10:26 08/31/18 10:26 08/31/18 10:26 Diagnostics - Vital Signs Vital Signs Temp Pulse Resp BP Pulse Ox 08/31/18 10:26 36.4 C 82 16 158/82 99 - Laboratory Lab Statement: Any lab studies that have been ordered have been reviewed, and results considered in the medical decision making process. 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 Discharge - Sign-Out/Discharge Documenting (check all that apply): Patient Departure All imaging exams completed and their final reports reviewed: No Studies - Discharge Plan Condition: Stable Disposition: HOME Prescriptions: ValACYclovir (*) [Valtrex 1 GM(*)] 1 gm PO TID 7 Days #21 tab Patient Education Materials: Samson (ED) Referrals: Bernadette Velasquez MD [Primary Care Provider] - Additional Instructions: please follow up with [facility] jeison after leaving urgent care - Billing Disposition and Condition Condition: STABLE Disposition: Home
== END 2018-08-31 11:20 | disposition home or self-care (01) ==
LOC: UCEAST 10:23
DX: B00.50 Herpesviral ocular disease, unspecified (principal); E11.9 Type 2 diabetes mellitus without complications; I10 Essential (primary) hypertension; Z79.82 Long term (current) use of aspirin; Z88.2 Allergy status to sulfonamides; Z79.899 Other long term (current) drug therapy
CPT/HCPCS: 99212; G0463